=== PATIENT | female | born 1970 | race African-American/Black ===

== ENCOUNTER 2020-04-21 09:16 | Outpatient (CLI) | payer OTHER, SELFPAY ==
--- NOTE | ~2020-04-21 | US_ITS ---
EXAMINATION: US thyroid DATE: 04/21/2020 09:54 INDICATION: Nontoxic single thyroid nodule TECHNIQUE: Multiple ultrasound images of the thyroid were obtained. COMPARISON: None. FINDINGS: The right thyroid lobe measures 5.4 x 1.9 x 1.9 cm. The left thyroid lobe measures 5.2 x 1.6 x 2.3 c m. Thyroid isthmus measures 3-4 mm in thickness. Multiple bilateral thyroid nodules. These include a 1.7 cm wider than tall solid hypoechoic nodule with microcalcifications and smooth margins. (TI-RADS 5, highly suspicious , FNA if >=1.0 cm, annual followup is >0.5 cm) in the mid right thyroid. There i s a second 1.6 cm nodule without microcalcifications but otherwise similar imaging features. (TI-RADS 4, moderately suspicious , FNA if >=1.5 cm, annual followup is >1 cm) at the inferior right thyroid. 2.0 cm TI RADS 4 solid hypoechoic and hypervascular nodule at the inferior left thyroid. 1.6 cm wide r than tall predominantly cystic TI RADS 1 nodule without echogenic foci in the mid left thyroid. IMPRESSION: 1. Multinodular goiter with three >1.5 cm TI RADS 5 and TI RADS 4 nodules in the left and right thyr oid mean criteria for ultrasound-guided biopsy which would be recommended if patient does not undergo the reported planned thyroidectomy. Reviewed, dictated and finalized at location B. IMPRESSION: 1. Multinodular goiter with three >1.5 cm TI RADS 5 and TI RADS 4 nodules in t he left and right thyroid mean criteria for ultrasound-guided biopsy which woul d be recommended if patient does not undergo the reported planned thyroidectomy .
== END 2020-04-21 09:17 | disposition home or self-care (01) ==
PROVIDERS: PCP Family Medicine; Visit Provider Otolaryngology
DX: E04.2 Nontoxic multinodular goiter (principal)
CPT/HCPCS: 76536

== ENCOUNTER 2020-05-03 15:02 | Outpatient (CLI) | payer OTHER, SELFPAY ==
--- NOTE | 2020-05-03 15:04 | ECG_ITS ---
Measurements Intervals [place] Rate: 83 P: 71 NM: 167 QRS: 39 QRSD: 71 T: 48 QT: 339 QTc: 400 Interpretive Statements SINUS RHYTHM BASELINE ARTIFACT- I, II, III, AVR, AVL, AVF NORMAL ECG Electronically Signed On 05-03-2020 17:48:44 CDT by Abel Barnard D.O.
[2020-05-03 15:41] LABS: Anion Gap 7 mmol/L (8-16); Blood Urea Nitrogen 14 mg/dL (7-17); Calcium 9.6 mg/dL (8.4-10.2); Carbon Dioxide 31 mmol/L (22-30); Chloride 102 mmol/L (98-107); Estimated Glomerular Filt Rate > 60; Glucose 122 mg/dL (65-105); Potassium 3.8 mmol/L (3.4-5.0); Sodium 140 mmol/L (137-145)
== END 2020-05-03 15:03 | disposition home or self-care (01) ==
LOC: ANHSURGERY 15:04
PROVIDERS: Anesthesiology; PCP Family Medicine; Visit Provider Otolaryngology
DX: Z01.818 Encounter for other preprocedural examination (principal); E11.9 Type 2 diabetes mellitus without complications
CPT/HCPCS: 36415; 80048; 93005

== ENCOUNTER 2020-05-06 01:29 | Outpatient (CLI) | payer OTHER, SELFPAY ==
[2020-05-06 22:13] LABS: SARS-CoV-2 RNA PCR Negative
== END 2020-05-06 01:30 | disposition home or self-care (01) ==
LOC: ANHCOVIDDT 01:29
PROVIDERS: Otolaryngology; PCP Family Medicine; Visit Provider Orthopaedic Surgery
DX: Z01.812 Encounter for preprocedural laboratory examination (principal); Z20.828 Contact with and (suspected) exposure to other viral communicable diseases
CPT/HCPCS: 87635; C9803; U0003

== ENCOUNTER 2020-05-09 00:46 | Day surgery (SDC) | payer OTHER, SELFPAY ==
[2020-05-02 10:31] VITALS: BMI 24.1
[2020-05-09] VITALS (11 sets, daily range): BP systolic 103–134; BP diastolic 61–86; PULSE 74–89; RESP 12–18; TEMP 36.1–36.3; O2SAT 93–100
--- NOTE | 2020-05-09 06:02 | P.HP_ITS ---
History of Present Illness History of Present Illness Consent: Risks, benefits, and alternatives have been discussed and questions answered. Patient agrees to proceed with procedure. Chief complaint: left thyroid mass Narrative: Reginald Pantoja is a 50 year old female she has a multinodular goiter the left thyroid nodules getting larger it has been selected for removal with a left thyroidectomy Review of Systems Review of Systems: All systems reviewed & are unremarkable except as noted in HPI and below [facility] Social History Social History (Updated 04/27/20 @ 08:16 by Mari Christine [facility]) Smoking status: Never smoker Second hand tobacco smoke exposure: No Alcohol intake: never Substance use: never Substance use type: does not use Meds Home Medications and Allergies Home Medications Medication Instructions Recorded Confirmed Type aspirin 81 mg tablet,delayed 81 mg PO DAILY 04/13/20 05/02/20 History release atorvastatin 10 mg tablet 10 mg PO QPM 04/13/20 05/02/20 History hydrochlorothiazide 25 mg tablet 12.5 mg PO DAILY 04/13/20 05/02/20 History metformin 500 mg tablet 500 mg PO DAILY 04/13/20 05/02/20 History L.acid-L.casei-B.bif-B.pablo-FOS 1 cap PO DAILY 05/02/20 05/02/20 History [Probiotic Blend] levonorgestrel [Mirena] 1 device INTRAUTERINE ONCE 05/02/20 05/02/20 History multivitamin 1 tablet PO DAILY 05/02/20 05/02/20 History Allergies Allergy/AdvReac Type Severity Reaction Status Date / Time No Known Allergies Allergy Verified 05/02/20 10:32 Assessment and Plan Additional Plan Left thyroidectomy
--- NOTE | 2020-05-09 06:03 | WPDHPUPDATE1 ---
History and Physical Update Update Date/Time: 05/09/20 06:03 History and Physical has been reviewed, including an updated exam of the patient. There are NO changes in the patient's condition. Risks, benefits, and alternatives have been discussed and questions answered. Patient agrees to proceed with procedure.
[2020-05-09] MEDS: LACTATED RINGERS 1,000 ML 30 ML IV CONT ×2 (08:15→10:14)
[2020-05-09 08:20] LABS: Glucose Point of Care 162 (65-105)
--- NOTE | 2020-05-09 08:32 | WPDANESEPPF ---
Anes - Initial Pre Proc Eval Procedure: Operation Date: 05/09/20 09:15 Proposed Procedures p Left Thyroidectomy - Shukri Barker MD Date/Time: 05/09/20 08:32 Surgeon: Shukri Barker MD Pre Op Diagnosis: left thyroid mass Patient Data Age: 50 Gender: F Height: 5 ft 11 in Weight: 78.4 kg Allergies Allergy/AdvReac Type Severity Reaction Status Date / Time No Known Allergies Allergy Verified 05/09/20 08:27 Home Medications Medication Instructions Recorded Confirmed Type aspirin 81 mg tablet,delayed 81 mg PO DAILY 04/13/20 05/09/20 History release atorvastatin 10 mg tablet 10 mg PO QPM 04/13/20 05/09/20 History hydrochlorothiazide 25 mg tablet 12.5 mg PO DAILY 04/13/20 05/09/20 History metformin 500 mg tablet 500 mg PO DAILY 04/13/20 05/09/20 History L.acid-L.casei-B.bif-B.pablo-FOS 1 cap PO DAILY 05/02/20 05/09/20 History [Probiotic Blend] levonorgestrel [Mirena] 1 device INTRAUTERINE ONCE 05/02/20 05/09/20 History multivitamin 1 tablet PO DAILY 05/02/20 05/09/20 History Laboratory Tests 05/09/20 08:15 POC Capillary Glucose 162 mg/dl H mg/dl (65-105) Patient hx anesthesia problems: none Family hx anesthesia problems: none [facility] Past Medical History Medical History Diabetes Hyperlipidemia Hypertension Social History Social History Smoking status: Never smoker Second hand tobacco smoke exposure: No Alcohol intake: never Substance use: never Substance use type: does not use Anes - Eval Final PreProcedure Day of Procedure 05/09/20 08:32 Heart: regular rate and rhythm Lungs: clear to auscultation Airway: Mallampati scale class II Neurological: alert and oriented Last oral intake: >/= 8 hours ASA classification: III Emergent: no Anesthetic plan: proceed Anesthesia type and monitoring: general ETT and standard monitoring Informed Consent: The patient's anesthetic plan and its attendant risks and benefits were discussed with the patient/family/POA. Questions were solicited and answers provided to the satisfaction of the patient/family/POA.
[2020-05-09] MEDS: ACETAMINOPHEN 500 MG TABLET 1000 MG PO (08:42)
[2020-05-09] MEDS: ceFAZolin 2 GM/D5W 50 ML 2 GM/50 ML BAG IVPB (09:14)
[2020-05-09] MEDS: LIDO 1%/EPINEPHRINE 1:100,000 20 ML VIAL INFILTRATE (09:33)
--- NOTE | 2020-05-09 09:58 | PM.PROC ---
Procedure Note - Detailed Date of procedure: 05/09/20 Pre-op diagnosis: left thyroid mass Post-op diagnosis: same Procedure performed: Thyroidectomy Description of procedure: Patient prepped and draped usual fashion duction general anesthesia a low collar incision was made and subplatysmal flaps elevated midline strap muscle divided the [] thyroid was identified a large cyst was identified in the [] thyroid lobe with the the ligature of the superior mid middle middle pedicles were removed the isthmus was divided the parathyroid was identified and left undisturbed the recurrent laryngeal nerve was identified hematuria placed for hemostasis and closed in layers with chromic and Monocryl Anesthesia: GETA Surgeon: Shukri Barker MD Estimated blood loss (mL): 10 Drains: No Packing: No Pathology: yes Complications: No immediate complications Condition: stable Disposition: PACU Findings: Left thyroid nodule
[2020-05-09 10:19] LABS: Glucose Point of Care 209 (65-105)
[2020-05-09] MEDS: fentaNYL CITRATE INJ (*CRX) 100 MCG/2 ML VIAL 25 MCG IV PUSH ×2 (11:01→11:09)
[2020-05-09] MEDS: oxyCODONE HCL (*CRX) 5 MG TAB IR PO (11:48)
--- NOTE | 2020-05-09 12:23 | SUR.PHASEII ---
1205; PT AWAKE AND RESTING QUIETLY. STATES PAIN 5-6/10. SMILE SYMMETRICAL, TONGUE MIDLINE, SPEECH CLEAR. PT EATING POPSICLE.
== END 2020-05-09 13:35 | disposition home or self-care (01) ==
PROVIDERS: PCP Family Medicine; Visit Provider Otolaryngology
PROC: (CPT 60220; principal; 2020-05-09 09:15)
DX: C73 Malignant neoplasm of thyroid gland (principal); I10 Essential (primary) hypertension; E78.5 Hyperlipidemia, unspecified; E11.9 Type 2 diabetes mellitus without complications; Z79.84 Long term (current) use of oral hypoglycemic drugs; Z79.82 Long term (current) use of aspirin
CPT/HCPCS: 60220; 88307; A9270; J0330; J0690; J1100; J2250; J2370; J2405; J2704; J3010; J7120

== ENCOUNTER 2020-06-09 09:59 | Outpatient (CLI) | payer OTHER, SELFPAY ==
--- NOTE | ~2020-06-09 | US_ITS ---
EXAMINATION: US thyroid DATE: 06/09/2020 11:04 INDICATION: Right thyroid nodules. TECHNIQUE: Multiple ultrasound images of the thyroid were obtained. COMPARISON: Ultrasound 04/21/2020 FINDINGS: The right thyroid lobe measures 5.3 x 2.0 x 1.7 cm. The left thyroid lobe is absent. The right thyro id lobe, there is an 18 mm solid, hypoechoic, kceqv-oaaa-pgri nodule with lobulated margin with macro calcifications and microcalcifications (TI-RADS TR5). In the right thyroid lobe, there is a 9 mm pred ominantly solid, hypoechoic, yxafa-xivq-elhk nodule with smooth margin without echogenic foci (TR4). In the inferior right thyroid lobe, there is a 1.6 cm solid, hypoechoic, lgqylc-mdfn-mvty nodule with lobular margin without echogenic foci (TR5). IMPRESSION: 1. Thyroid nodules. The two TR5 nodules were biopsied today. Reviewed, dictated and finalized at location A. TENANT GENERAL
--- NOTE | ~2020-06-09 | US_ITS ---
EXAMINATION: US FNA w image guidance DATE: 06/09/2020 11:08 INDICATION: Right thyroid nodule. TECHNIQUE: The procedure and its benefits, risks, and benefits were discussed with the patient. Risks specifical ly discussed included bleeding. The patient verbalized understanding of the risks and agreed to proce ed. The neck was prepped and draped in the usual sterile manner. 1% lidocaine was used for local ane sthesia. 5 passes were made with a 25G needle into the lesion. Appropriate needle location was docu mented with continuous sonographic guidance. There were no immediate complications. The patient unde rstood to call the ordering physician for results after a week and a half and verbalized that underst anding. FINDINGS: Grayscale ultrasound images demonstrate needles advanced into a 1.7 cm nodule in superior right thyro id lobe for biopsy. IMPRESSION: 1. Ultrasound-guided fine needle aspiration of a 1.7 cm nodule in superior right thyroid lobe. Reviewed, dictated and finalized at location A. LOGIST IMPRESSION: 1. Ultrasound-guided fine needle aspiration of a 1.7 cm nodule in superior rig ht thyroid lobe.
--- NOTE | ~2020-06-09 | US_ITS ---
EXAMINATION: US FNA additional DATE: 06/09/2020 15:38 INDICATION: Malignant neoplasm of thyroid. TECHNIQUE: The procedure and its benefits, risks, and benefits were discussed with the patient. Risks specifical ly discussed included bleeding. The patient verbalized understanding of the risks and agreed to proce ed. The neck was prepped and draped in the usual sterile manner. 1% lidocaine was used for local ane sthesia. 5 passes were made with a 25G needle into the lesion. Appropriate needle location was docu mented with continuous sonographic guidance. There were no immediate complications. The patient unde rstood to call the ordering physician for results after a week and a half and verbalized that underst anding. FINDINGS: Grayscale ultrasound images demonstrate needles advanced into a 1.6 cm nodule in inferior right thyro id lobe for biopsy. IMPRESSION: 1. Ultrasound-guided fine needle aspiration of a nodule in inferior right thyroid lobe. Reviewed, dictated and finalized at location A. L MIXER IMPRESSION: 1. Ultrasound-guided fine needle aspiration of a nodule in inferior right thyr oid lobe.
== END 2020-06-09 10:00 | disposition home or self-care (01) ==
PROVIDERS: PCP Family Medicine; Visit Provider Otolaryngology
DX: C73 Malignant neoplasm of thyroid gland (principal); E04.2 Nontoxic multinodular goiter
CPT/HCPCS: 10005; 10006; 76536; 88173; 88305

== ENCOUNTER 2021-01-25 11:00 | Outpatient (RCR) | payer OTHER, SELFPAY ==
--- NOTE | 2021-01-10 16:59 | STOPEVAL ---
SPEECH THERAPY INITIAL EVALUATION: Thank you for referring Reginald Pantoja to [facility] [place].? The patient is scheduled to be seen for therapy? 1x/week for 4 weeks. Please review, sign, date and return this plan of care KRYSTAL. I agree with and certify that the following plan of care is medically necessary. Referring Physician Date Attending Provider: Shukri Barker MD Outpatient Past Medical History Past Medical History Source of Past Medical History Patient Neurological History Hx Neurological Disorders No Significant History Cardiovascular History Hx Hypercholesterolemia Yes Hx Hypertension Yes Gastrointestinal History Hx Gastrointestinal Disorders No Significant History Genitourinary History Hx Genitourinary Disorders No Significant History Musculoskeletal History Hx Musculoskeletal Disorders No Significant History Hematological History Hx Hematological Disorders No Significant History Endocrine History Hx Diabetes Yes Hx Other Endocrine Disorders Yes: L THYROID MASS - removed 2020 HEENT History Hx HEENT Disorders No Significant History Integumentary History Hx Skin Disorders No Significant History Reproductive History Hx Fibroids Yes Hx Tubal Ligation Yes Hx Other Reproductive Disorders Yes: MIRENA IUD Psychosocial History Hx Psychiatric Disorders No Significant History Pain History History of Any Previous or Ongoing No Significant History Instance of Pain Anesthesia History Hx Anesthesia Reactions No Significant History Evaluation Information Problem Diagnosis voice changes Additional Evaluation Detail My voice goes through extremes from sounding like Zenon White to Elvin Marshall. I' ve been to 3 ENT's and they all say my vocal cords are fine. Half of my thyroid has been removed. The last Dr stated that I'm doing it to myself. My voice leaves or changes with drinking alcohol, the seasons which I thought it was my allergies, the weather if its really cold, drinking hot liquids, or sometimes just sitting there it can change . Pt denied it could be stress or anxiety related. It almost feels like I have a sore throat that starts suddenly, they say there's no
--- NOTE | 2021-01-25 15:56 | PCSTNOTE ---
Patient did not show up for scheduled appointment this date. No answer upon attempt to call her. Message left re missing appointment.
--- NOTE | 2021-02-09 11:16 | PCSTNOTE ---
SPEECH THERAPY DISCHARGE: Attending Provider: Shukri Barker MD Patient:Reginald Pantoja Date of :1970 Pt presented to outpatient speech therapy with a diagnosis of dysphonia; however, pt reported her ENT informed her that her vocal cords are normal and without pathology. 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 Pt exhibited ability to produce vegetative vocal functions, such as, coughing, sighing, & laughing without impairment. The bouts of dysphonia, which consisted of altering the voice to a deep pitch which was also very breathy, were temporary, very sudden and occurred for seconds and/or minutes and then returned to her optimal voice. She was instructed that her voice disorder may be a subconscious habit as she adamantly denied that it may be related to anxiety, stress, or psychological. She was reassured that her symptoms are real and valid. Upon being instructed on several basic vocal activities to alleviate the vocal alteration, she appeared to feel relief of a possible solution and stated, I think this might work . She was given a HEP of the same vocal activities performed during this evaluation was instructed to return x1/week for 4 weeks to continue to pursue methods that may eliminate her voice disorder. At this time, the patient has not returned for any further treatments since the initial evaluation, therefore she will be discharged at this time. Patient?s initial, and only, visit was on 01/10/2021. Thank you for referring this patient to [facility]. Please review, sign, date and return this discharge summary KRYSTAL. I have been updated about the patient's current status and I agree with discharge from the above service at this time. Referring Physician Date
== END 2021-02-14 15:29 | disposition home or self-care (01) ==
LOC: ANHST 11:00
PROVIDERS: PCP Family Medicine; Visit Provider Otolaryngology
DX: R49.0 Dysphonia (principal)
CPT/HCPCS: 92524